=== PATIENT | male | born 1995 | race Caucasian/White ===

== ENCOUNTER 2018-03-10 12:33 | Emergency (ER) | payer OTHER ==
[2018-03-10 12:57] VITALS: BP 132/80
--- NOTE | 2018-03-10 13:17 | UC ---
Skin Complaint HPI - HPI Summary HPI Summary: "poison Najma", describes as a rash on face R side of neck and L hand. exposed thursday while golfing - History of Current Complaint Chief Complaint: UCRash Time Seen by Provider: 03/10/18 13:02 Stated Complaint: SKIN COMPLAINT Hx Obtained From: Patient Onset/Duration: Gradual Onset Timing: Constant Pain Intensity: 0 Aggravating Factor(s): Nothing Alleviating Factor(s): Nothing Associated Signs & Symptoms: Positive: Rash - Allergy/Home Medications Allergies/Adverse Reactions: Allergies Allergy/AdvReac Type Severity Reaction Status Date / Time poison najma extract Allergy Rash Verified 03/10/18 12:57 Review of Systems Constitutional: Negative Skin: Rash Eyes: Negative ENT: Negative Respiratory: Negative Cardiovascular: Negative Gastrointestinal: Negative Genitourinary: Negative Motor: Negative Neurovascular: Negative Musculoskeletal: Negative Neurological: Negative Psychological: Negative Is Patient Immunocompromised?: No All Other Systems Reviewed And Are Negative: Yes PMH/Surg Hx/FS Hx/Imm Hx Previously Healthy: Yes - Surgical History Surgical History: Yes Surgery Procedure, Year, and Place: Right foot x 2 - Family History Known Family History: Positive: None - Social History Occupation: Employed Full-time Lives: With Family Alcohol Use: Weekly Alcohol Amount: 15 Substance Use Type: None Smoking Status (MU): Never Smoked Tobacco - Immunization History Hx Tetanus, Diphtheria Vaccination: No Vaccination Up to Date: Yes Physical Exam Triage Information Reviewed: Yes Appearance: Well-Appearing Vital Signs: Initial Vital Signs Temp 98.3 F 03/10/18 12:49 Pulse 75 03/10/18 12:49 Resp 18 03/10/18 12:49 BP 132/80 03/10/18 12:49 Pulse Ox 100 03/10/18 12:49 Vital Signs Reviewed: Yes Eyes: Positive: Conjunctiva Clear ENT: Positive: Pharynx normal, TMs normal. Negative: Nasal congestion, Nasal drainage Neck: Positive: Supple, Nontender, No Lymphadenopathy Respiratory: Positive: Lungs clear, Normal breath sounds Cardiovascular: Positive: RRR, No Murmur Abdomen Description: Positive: Nontender, No Organomegaly, Soft Bowel Sounds: Positive: Present Musculoskeletal: Positive: ROM Intact Neurological: Positive: Alert Psychological: Positive: Age Appropriate Behavior Skin Exam: Normal Skin: Positive: rashes - vesicular rash : mostly R side of face but few spots on L, R neck with a linear streak and few spots back of L hand. Course/Dx - Diagnoses Provider Diagnoses: Contact dermatitis Discharge - Sign-Out/Discharge Documenting (check all that apply): Patient Departure - Discharge Plan Condition: Stable Disposition: HOME Prescriptions: methylPREDNISolone [Medrol Dosepak 4 MG*] 0 mg PO .SEE JORDAN INSTRUCTION #1 tab Patient Education Materials: Poison Najma (ED) Referrals: GETACHEW Otero [Medical Doctor] - - Billing Disposition and Condition Condition: STABLE Disposition: Home
== END 2018-03-10 13:25 | disposition home or self-care (01) ==
LOC: UCCORT 12:33
DX: L25.5 Unspecified contact dermatitis due to plants, except food (principal)
CPT/HCPCS: 99202; G0463

== ENCOUNTER 2018-05-19 09:19 | Emergency (ER) | payer OTHER ==
--- NOTE | 2018-05-19 10:57 | UC ---
General HPI - HPI Summary HPI Summary: Patient is complaining of 2 day history of sore throat, body aches, subjective fever and headache. He admits to cough but has no associated shortness of breath, sputum or wheezing. He states he has occasional sinus congestion but no more than the average person. - History of Current Complaint Chief Complaint: UCGeneralIllness Stated Complaint: SORE THROAT Time Seen by Provider: 05/19/18 10:30 Hx Obtained From: Patient Onset/Duration: Gradual Onset Timing: Constant Pain Intensity: 6 Alleviating: Nothing Associated Signs & Symptoms: Positive: Cough, Fever, Headache - Allergy/Home Medications Allergies/Adverse Reactions: Allergies Allergy/AdvReac Type Severity Reaction Status Date / Time poison jesús extract Allergy Rash Verified 03/10/18 12:57 Home Medications: Home Medications Acetaminophen [Tylophen] 1,000 mg PO ONCE 05/19/18 [History Confirmed 05/19/18] PMH/Surg Hx/FS Hx/Imm Hx Previously Healthy: Yes - Surgical History Surgical History: Yes Surgery Procedure, Year, and Place: Right foot x 2 - Family History Known Family History: Positive: None - Social History Occupation: Employed Full-time, Student Alcohol Use: Weekly Alcohol Amount: 15 Substance Use Type: None Smoking Status (MU): Never Smoked Tobacco Type: Smokeless Tobacco Amount Used/How Often: OCCASSIONAL - Immunization History Hx Tetanus, Diphtheria Vaccination: No Vaccination Up to Date: Yes Review of Systems Constitutional: Fever, Chills ENT: Sore Throat Respiratory: Cough Musculoskeletal: Myalgia Neurological: Headache Is Patient Immunocompromised?: No All Other Systems Reviewed And Are Negative: Yes Physical Exam Triage Information Reviewed: Yes Appearance: Well-Appearing Vital Signs: Initial Vital Signs Temp 97.2 F 05/19/18 10:28 Pulse 87 05/19/18 10:28 Resp 16 05/19/18 10:28 BP 149/87 05/19/18 10:28 Pulse Ox 98 05/19/18 10:28 Vital Signs Reviewed: Yes Eyes: Positive: Conjunctiva Clear ENT: Positive: Pharyngeal erythema, TMs normal, Tonsillar swelling, Uvula midline. Negative: Nasal congestion, Nasal drainage, Trismus, Muffled voice, Hoarse voice Neck: Positive: Supple, Tenderness @ - To the peritonsillar nodes which are also enlarged. Respiratory: Positive: Lungs clear, Normal breath sounds, No respiratory distress Cardiovascular: Positive: RRR, No Murmur Abdomen Description: Positive: Nontender, No Organomegaly Bowel Sounds: Positive: Present Musculoskeletal: Positive: ROM Intact Neurological: Positive: Alert Psychological: Positive: Age Appropriate Behavior Skin Exam: Normal Diagnostics - Laboratory Diagnostic Studies Completed/Ordered: Rapid strep is negative Course/Dx - Course Course Of Treatment: Rapid strep is negative; however, the test is not 100%. Patient's history and physical exam is suggestive of bacterial pharyngitis and there is nothing on his exam suggest that he has an associated viral URI or viral bronchitis thus I'm going to treat him presumptively with penicillin. I did discuss the test result with the patient in the alternative of waiting another one to 3 days for a throat culture result; however, he opted to treat with penicillin. - Differential Dx - Multi-Symptom Provider Diagnoses: Pharyngitis Discharge - Sign-Out/Discharge Documenting (check all that apply): Patient Departure All imaging exams completed and their final reports reviewed: No Studies - Discharge Plan Condition: Stable Disposition: HOME Prescriptions: Penicillin VK 500 MG TAB(NF) [Penicillin VK 500 mg Tab] 500 mg PO BID 10 Days # 20 tab Patient Education Materials: Pharyngitis (ED) [facility] [Outside[facility] - 7 Days - Billing Disposition and Condition Condition: STABLE Disposition: Home
[2018-05-19 10:58] VITALS: BP 138/89
== END 2018-05-19 11:05 | disposition home or self-care (01) ==
LOC: UCCORT 09:19
DX: J02.9 Acute pharyngitis, unspecified (principal); F17.290 Nicotine dependence, other tobacco product, uncomplicated
CPT/HCPCS: 87651; 99212; G0463

== ENCOUNTER 2018-12-13 09:19 | Emergency (ER) | payer OTHER ==
[2018-12-13 09:58] VITALS: BP 147/99
--- NOTE | 2018-12-13 10:29 | UC ---
Throat Pain/Nasal Jese HPI - HPI Summary HPI Summary: Pt presents with c/o St, fever, chills, body aches X 3-4 days. - History of Current Complaint Chief Complaint: UCGeneralIllness Stated Complaint: ST,FEVER Time Seen by Provider: 12/13/18 10:04 Hx Obtained From: Patient Onset/Duration: Sudden Onset, Lasting Days, Still Present Severity: Moderate Pain Intensity: 8 Cough: None Associated Signs & Symptoms: Positive: Dysphagia, Fever - Epiglottits Risk Factors Epiglottis Risk Factors: Sudden Onset - Allergies/Home Medications Allergies/Adverse Reactions: Allergies Allergy/AdvReac Type Severity Reaction Status Date / Time poison jesús extract Allergy Rash Verified 12/13/18 09:53 Home Medications: Home Medications Ibuprofen TAB* [Advil TAB*] 600 - 800 mg PO Q6H PRN 12/13/18 [History Confirmed 12/13/18] PMH/Surg Hx/FS Hx/Imm Hx Previously Healthy: Yes - Surgical History Surgical History: Yes Surgery Procedure, Year, and Place: Right foot x 2 - Family History Known Family History: Positive: Cardiac Disease - Social History Occupation: Employed Full-time Lives: With Family Alcohol Use: Weekly Alcohol Amount: 15 Substance Use Type: Marijuana Substance Use Comment - Amount & Last Used: Occasionally Smoking Status (MU): Never Smoked Tobacco Type: Smokeless Tobacco Amount Used/How Often: OCCASSIONAL Have You Smoked in the Last Year: No When Did the Patient Quit Smoking/Using Tobacco: 07/2018 - Immunization History Hx Tetanus, Diphtheria Vaccination: No Vaccination Up to Date: Yes Review of Systems All Other Systems Reviewed And Are Negative: Yes Constitutional: Positive: Fever, Chills, Fatigue Skin: Positive: Negative Eyes: Positive: Negative ENT: Positive: Sore Throat Respiratory: Positive: Negative Cardiovascular: Positive: Negative Gastrointestinal: Positive: Negative Genitourinary: Positive: Negative Motor: Positive: Negative Neurovascular: Positive: Negative Musculoskeletal: Positive: Negative Neurological: Positive: Negative Psychological: Positive: Negative Is Patient Immunocompromised?: No Physical Exam Triage Information Reviewed: Yes Appearance: Ill-Appearing Vital Signs: Initial Vital Signs Temp 99.6 F 12/13/18 09:51 Pulse 106 12/13/18 09:51 Resp 18 12/13/18 09:51 BP 147/99 12/13/18 09:51 Pulse Ox 100 12/13/18 09:51 Vital Signs Reviewed: Yes Eye Exam: Normal ENT: Positive: Tonsillar swelling, Tonsillar exudate Dental Exam: Normal Neck: Positive: Enlarged Nodes @ Respiratory Exam: Normal Cardiovascular Exam: Normal Abdominal Exam: Normal Musculoskeletal Exam: Normal Neurological Exam: Normal Psychological Exam: Normal Skin Exam: Normal Throat Pain/Nasal Course/Dx - Course Course Of Treatment: I disucussed with th pt the need to f/u with a PCP and if he does not improve than he may need to be evaluated for mono. - Differential Dx/Diagnosis Differential Diagnosis/HQI/PQRI: Pharyngitis, Tonsillitis Provider Diagnosis: Tonsillitis with exudate Discharge - Sign-Out/Discharge Documenting (check all that apply): Patient Departure All imaging exams completed and their final reports reviewed: No Studies - Discharge Plan Condition: Stable Disposition: HOME Prescriptions: Penicillin VK 500 MG TAB(NF) [Penicillin VK 500 mg Tab] 500 mg PO Q8H #30 tab Patient Education Materials: Tonsillitis (ED) Forms: *Work Release Referrals: [facility] [place] [facility] [Outside] - If Needed No Primary Care Phys,NOPCP [Primary Care Provider] - - Billing Disposition and Condition Condition: STABLE Disposition: Home
== END 2018-12-13 10:52 | disposition home or self-care (01) ==
LOC: UCCORT 09:19
DX: J03.90 Acute tonsillitis, unspecified (principal); R13.10 Dysphagia, unspecified; Z91.048 Other nonmedicinal substance allergy status
CPT/HCPCS: 87651; 99212; G0463

== ENCOUNTER 2019-01-06 11:15 | Emergency (ER) | payer OTHER ==
[2019-01-06 11:30] VITALS: BP 144/92
--- NOTE | 2019-01-06 11:42 | UC ---
Skin Complaint HPI - HPI Summary HPI Summary: rash all over x 2 weeks started on his arms/ forearms 2 weeks ago now its spreading all over mild itch , no pain , has been on Amoxicillin , has been using a new soap, hx of severe reaction to poison jesús no fever, no chills, no body aches - History of Current Complaint Chief Complaint: UCSkin Time Seen by Provider: 01/06/19 11:21 Stated Complaint: RASH Hx Obtained From: Patient Onset/Duration: Gradual Onset, Lasting Weeks - 2, Still Present Timing: Constant Onset Severity: Moderate Current Severity: Severe Pain Intensity: 0 Location: Diffuse - all over Character: Pruritus, Redness Aggravating Factor(s): Nothing Alleviating Factor(s): Nothing Associated Signs & Symptoms: Negative: Nausea, Vomiting, Numbness, Weakness, Fever, Chills, Tenderness, Red Streaks, Joint Swelling - Allergy/Home Medications Allergies/Adverse Reactions: Allergies Allergy/AdvReac Type Severity Reaction Status Date / Time poison jesús extract Allergy Rash Verified 01/06/19 11:31 PMH/Surg Hx/FS Hx/Imm Hx Previously Healthy: Yes - Surgical History Surgical History: Yes Surgery Procedure, Year, and Place: Right foot x 2 - Family History Known Family History: Positive: None, Cardiac Disease - Social History Alcohol Use: Daily Alcohol Amount: 15 Substance Use Type: Marijuana Substance Use Comment - Amount & Last Used: Occasionally Smoking Status (MU): Never Smoked Tobacco Type: Smokeless Tobacco Amount Used/How Often: OCCASSIONAL Have You Smoked in the Last Year: No When Did the Patient Quit Smoking/Using Tobacco: 07/2018 - Immunization History Hx Tetanus, Diphtheria Vaccination: No Vaccination Up to Date: Yes Review of Systems All Other Systems Reviewed And Are Negative: Yes Constitutional: Positive: Negative Skin: Positive: Rash Eyes: Positive: Negative ENT: Positive: Negative Respiratory: Positive: Negative Is Patient Immunocompromised?: No Physical Exam Triage Information Reviewed: Yes Appearance: Well-Appearing, No Pain Distress, Well-Nourished Vital Signs: Initial Vital Signs Temp 98.9 F 01/06/19 11:21 Pulse 77 01/06/19 11:21 Resp 18 01/06/19 11:21 BP 144/92 01/06/19 11:21 Pulse Ox 100 01/06/19 11:21 Vital Signs Reviewed: Yes Eye Exam: Normal Eyes: Positive: Conjunctiva Clear ENT: Positive: Normal ENT inspection, Hearing grossly normal, Pharynx normal Neck: Positive: Supple, Nontender, No Lymphadenopathy Respiratory: Positive: Chest non-tender, Lungs clear, Normal breath sounds Cardiovascular: Positive: RRR, No Murmur, Pulses Normal Skin: Positive: Rashes - generalize papular rash Course/Dx - Diagnoses Provider Diagnosis: Contact dermatitis Discharge - Sign-Out/Discharge Documenting (check all that apply): Patient Departure All imaging exams completed and their final reports reviewed: No Studies - Discharge Plan Condition: Stable Disposition: HOME Prescriptions: predniSONE [Prednisone 20 MG TAB] 20 mg PO BID #14 tablet Patient Education Materials: Contact Dermatitis (ED) Referrals: No Primary Care Phys,NOPCP [Primary Care Provider] - 7 Days - Billing Disposition and Condition Condition: STABLE Disposition: Home
== END 2019-01-06 11:45 | disposition home or self-care (01) ==
LOC: UCCORT 11:15
DX: L25.9 Unspecified contact dermatitis, unspecified cause (principal); Z91.09 Other allergy status, other than to drugs and biological substances
CPT/HCPCS: 99212; G0463

== ENCOUNTER 2019-09-10 09:09 | Emergency (ER) | payer SELFPAY ==
[2019-09-10 10:19] VITALS: BP 171/110
--- NOTE | 2019-09-10 10:50 | UC ---
Skin Complaint HPI - HPI Summary HPI Summary: Pt presents with c/o sudden onset of itchy rash on face, upper torso and arms. Pt states he cutting wood for wood stove and thinks he came in contact with poison tobi vine. - History of Current Complaint Chief Complaint: UCSkin Time Seen by Provider: 09/10/19 10:32 Stated Complaint: L EYE COMP/SKIN COMP (POISON TOBI) Hx Obtained From: Patient Onset/Duration: Sudden Onset, Lasting Days, Still Present Skin Exposure Onset/Duration: Days Ago Timing: Constant Onset Severity: Mild Current Severity: Mild Pain Intensity: 0 Location: Diffuse, Face Character: Swelling, Pruritus, Redness Aggravating Factor(s): Touch Alleviating Factor(s): Nothing Associated Signs & Symptoms: Positive: Rash Related History: Possible Reaction to: Environmental Exposure - poison tobi - Allergy/Home Medications Allergies/Adverse Reactions: Allergies Allergy/AdvReac Type Severity Reaction Status Date / Time poison tobi extract Allergy Rash Verified 09/10/19 10:19 PMH/Surg Hx/FS Hx/Imm Hx Previously Healthy: Yes - Surgical History Surgical History: Yes Surgery Procedure, Year, and Place: Right foot x 2 - Family History Known Family History: Positive: None, Cardiac Disease - Social History Occupation: Employed Full-time Lives: With Family Alcohol Use: Occasionally Alcohol Amount: 15 Substance Use Type: None Substance Use Comment - Amount & Last Used: Occasionally Smoking Status (MU): Never Smoked Tobacco Type: Smokeless Tobacco Amount Used/How Often: OCCASSIONAL Have You Smoked in the Last Year: No When Did the Patient Quit Smoking/Using Tobacco: 07/2018 - Immunization History Hx Tetanus, Diphtheria Vaccination: No Vaccination Up to Date: Yes Review of Systems All Other Systems Reviewed And Are Negative: Yes Constitutional: Positive: Negative Skin: Positive: Rash - pruritic, raised, erythematous. Eyes: Positive: Negative ENT: Positive: Negative Respiratory: Positive: Negative Cardiovascular: Positive: Negative Gastrointestinal: Positive: Negative Genitourinary: Positive: Negative Motor: Positive: Negative Neurovascular: Positive: Negative Musculoskeletal: Positive: Negative Neurological: Positive: Negative Psychological: Positive: Negative Is Patient Immunocompromised?: No Physical Exam Triage Information Reviewed: Yes Appearance: Well-Appearing Vital Signs: Initial Vital Signs Temp 98.2 F 09/10/19 10:15 Pulse 108 09/10/19 10:15 Resp 14 09/10/19 10:15 BP 171/110 09/10/19 10:15 Pulse Ox 100 09/10/19 10:15 Vital Signs Reviewed: Yes Eye Exam: Normal ENT Exam: Normal Dental Exam: Normal Neck exam: Normal Respiratory Exam: Normal Cardiovascular Exam: Normal Musculoskeletal Exam: Normal Neurological Exam: Normal Skin: Positive: Rashes - rashed, blister, fluid filled, scattered across upper torso and upper arms and on left upper eyelid. pt denies vision changes. Course/Dx - Differential Diagnoses - Skin Complaint Differential Diagnoses: Contact Dermatitis, Poison Tobi - Diagnoses Provider Diagnosis: Contact dermatitis Discharge ED - Sign-Out/Discharge Documenting (check all that apply): Patient Departure All imaging exams completed and their final reports reviewed: No Studies - Discharge Plan Condition: Stable Disposition: HOME Prescriptions: Cetirizine* [ZyrTEC 10 MG TAB*] 10 mg PO DAILY #7 tab predniSONE 10 mg TAB [Deltasone 10 MG TAB*] 30 mg PO DAILY #12 tab Patient Education Materials: Contact Dermatitis (ED) Forms: *Gen. Provider Communication Referrals: [facility] [place] [facility] [Outside] - If Needed No Primary Care Phys,NOPCP [Primary Care Provider] - - Billing Disposition and Condition Condition: STABLE Disposition: Home - Attestation Statements Provider Attestation: I was available for consult. This patient was seen by the [facility]. The patient was not presented to , seen by or examined by -David Limon MD
== END 2019-09-10 10:59 | disposition home or self-care (01) ==
LOC: UCCORT 09:09
DX: L25.9 Unspecified contact dermatitis, unspecified cause (principal); Z91.09 Other allergy status, other than to drugs and biological substances
CPT/HCPCS: 99212; G0463